=== PATIENT | male | born 1975 | race Hispanic/Latino ===

== ENCOUNTER 2024-03-02 09:37 | Emergency (ER) | payer BC, OTHER ==
[~2024-03-02] VITALS: Ht 170.2 cm; Wt 84.4 kg
[2024-03-02] MEDS: KETOROLAC TROMETHAMINE 30 MG/ML VIAL IV STA (10:51)
[2024-03-02] MEDS: SODIUM CHLORIDE 0.9% 1000ML 1,000 ML IV ONE (10:52)
[2024-03-02] MEDS ORDERED: FLOMAX0.4 MG PO (12:15)
[2024-03-02] MEDS ORDERED: BACTRIM DS TAB1 EACH PO (12:16)
[2024-03-02] MEDS ORDERED: KETOROLAC TROME10 MG PO (12:16)
[2024-03-02 12:30] VITALS: PULSE 64; RESP 16; TEMP 98.2; O2SAT 99
== END 2024-03-02 12:36 | disposition home or self-care (01) ==
LOC: FSED 10:13
DX: R10.11 Right upper quadrant pain (principal); N13.2 Hydronephrosis with renal and ureteral calculous obstruction; K42.9 Umbilical hernia without obstruction or gangrene; K40.20 Bilateral inguinal hernia, without obstruction or gangrene, not specified as recurrent
CPT/HCPCS: 74176; 80053; 81003; 85025; 96374; 99284; J0696; J1885; J7030